=== PATIENT | male | born 1975 | race Caucasian/White ===

== ENCOUNTER 2020-12-13 15:50 | Emergency (ER) | payer OTHER ==
[~2020-12-13] VITALS: Ht 182.9 cm; Wt 91.3 kg
[2020-12-13] MEDS ORDERED: IV NORMAL SALINE 1000ML BAG 1,000 ML IV ONE (16:00)
[2020-12-13 16:15] LABS: BASO # 0.1 x10^3/uL (0.0-0.2); BASO % 1 % (0-3); EOS % 1 % (0-3); HEMATOCRIT 33.7 % (39.0-53.0); HEMOGLOBIN 11.3 g/dL (13.0-17.5); LYMPH # 1.6 x10^3/uL (1.0-4.8); LYMPH % 30 % (24-48); MEAN CORPUSCULAR HEMOGLOBIN 30 pg (25-35); MEAN CORPUSCULAR HGB CONC 34 g/dL (31-37); MEAN CORPUSCULAR VOLUME 89 fL (79-100); MONO # 0.4 x10^3/uL (0.0-1.1); MONO % 7 % (0-9); NEUT # 3.3 x10^3/uL (1.8-7.7); NEUT % 61 % (31-73); PLATELET COUNT 173 x10^3/uL (140-400); RED BLOOD COUNT 3.79 x10^6/uL (4.30-5.70); RED CELL DISTRIBUTION WIDTH 14.5 % (11.5-14.5); WHITE BLOOD COUNT 5.4 x10^3/uL (4.0-11.0)
--- NOTE | 2020-12-13 16:16 | PHYS DOC ---
General Adult EDM: Chief Complaint: CHEST PAIN HPI: HPI: Patient is a 45 year old [f__sex] who presents with [] Review of Systems: Review of Systems: Constitutional: Denies fever or chills Eyes: Denies redness or eye pain HENT: Denies nasal congestion or sore throat Respiratory: Denies cough or shortness of breath Cardiovascular: Denies chest pain or palpitations GI: Denies abdominal pain, nausea, or vomiting : Denies dysuria or hematuria Musculoskeletal: Denies back pain or joint pain Integument: Denies rash or skin lesions Neurologic: Denies headache, focal weakness or sensory changes Complete systems were reviewed and found to be within normal limits, except as documented in this note. Heart Score: C/O Chest Pain: Yes HEART Score for Chest Pain: HEART Score for Chest Pain Response (Comments) Value History Slighlty/Non-Suspicious 0 ECG Normal 0 Age < 45 0 Risk Factors No Risk Factors 0 Troponin < Normal Limit 0 Total 0 Risk Factors: Risk Factors: DM, Current or recent (<one month) smoker, HTN, HLP, family history of CAD, obesity. Risk Scores: Score 0 - 3: 2.5% MACE over next 6 weeks - Discharge Home Score 4 - 6: 20.3% MACE over next 6 weeks - Admit for Clinical Observation Score 7 - 10: 72.7% MACE over next 6 weeks - Early Invasive Strategies Current Medications: Current Medications Medications (Trade) Dose Ordered Sig/Mp Start Time Stop Time Status Last Admin Dose Admin Sodium Chloride 1,000 ml @ 1,000 mls/hr 1X ONCE 12/13/20 16:00 12/13/20 16:59 Allergies: Allergies: Allergies Coded Allergies Type Severity Reaction Last Updated Verified No Known Drug Allergies 12/13/20 No Physical Exam: PE: Constitutional: Well developed, well nourished, no acute distress, non-toxic appearance HENT: Normocephalic, atraumatic Eyes: PERRL, EOMI, conjunctiva normal, no discharge Neck: Normal range of motion, no tenderness, supple Lungs & Thorax: No respiratory distress, equal chest rise and fall Abdomen: Soft, no tenderness Skin: Warm, dry, no erythema, no rash Back: No tenderness, no CVA tenderness Extremities: No tenderness, ROM intact, no edema Neurologic: Alert and oriented X 3, normal motor function, normal sensory function, no focal deficits noted Psychologic: Affect normal, judgment normal EKG: EKG: @1604 NSR at 63bpm, NO ST elevation, QRS 80ms, QT/QTc 426/439ms Radiology/Procedures: Radiology/Procedures: PROCEDURE: CT ANGIO CHEST W ABD PEL W/ CTA CHEST_ABDOMEN_AND PELVIS History: Right chest pain. Right upper quadrant pain. Technique: CT of the chest was performed with intravenous contrast. PE protocol. Maximum intensity projection coronal and sagittal reconstructions were performed. CT abdomen pelvis with contrast. Coronal and sagittal reconstructions were performed. Exposure: One or more of the following individualized dose reduction techniques were utilized for this examination: 1. Automated exposure control 2. Adjustment of the mA and/or kV according to patient size 3. Use of iterative reconstruction technique. Comparison: None Findings: Chest: Linear filling defects within the right lower lobe segmental pulmonary artery. Additional linear filling defects within the right middle and upper lobe segmental pulmonary arteries. Linear filling defects within the left lower lobe, lingula and left upper lobe pulmonary arteries. No definite acute pulmonary embolus. No aortic aneurysm or dissection. No pathologic lymphadenopathy. No consolidation or pleural effusion. No pneumothorax. Mild right upper lobe inferior tree-in-bud nodularity. Mild bronchial wall thickening. Abdomen and pelvis: The liver, spleen, adrenal glands, and pancreas are unremarkable. Contracted gallbladder. No biliary ductal dilatation. Patent portal vein. No hydronephrosis. No renal calculi. Normal appearance of the urinary bladder. Normal appendix. Moderate stool burden throughout the colon. No evidence of bowel obstruction. No pathologic lymphadenopathy. No ascites. Small fat- containing umbilical hernia. Bones: No pathologic osseous lesions. Impression: Chest CT: 1. Sequelae of prior thromboembolic disease. No definite acute pulmonary embolus. 2. Mild tree-in-bud nodularity within the right upper lobe with bronchial wall thickening, may indicate infectious or inflammatory process. Abdomen and pelvis CT: 1. No acute abdominal or pelvic pathology. 2. Contracted gallbladder. 3. Moderate colonic stool burden. Electronically signed by: Axel Gonazles DO (12/13/2020 5:21 PM) [facility] Course & Med Decision Making: Course & Med Decision Making Pertinent Labs and Imaging studies reviewed. (See chart for details) Patient stable for discharge with outpatient follow-up with PCP. Discussed findings and plan with patient, who acknowledges understanding and agreement. Anna Disclaimer: Anna Disclaimer: This electronic medical record was generated, in whole or in part, using a voice recognition dictation system. Departure Departure Impression: Primary Impression: Atypical chest pain Additional Impressions: History of pulmonary embolism Constipation Qualified Codes: K59.00 - Constipation, unspecified History of hypotension Disposition: HOME / SELF CARE / HOMELESS Condition: STABLE Patient Instructions: Chest Pain (Nonspecific), [id number], Constipation, Adult, [id number], Hypotension, [id number], Pulmonary Embolus Additional Instructions: Your chest pain is likely secondary to known PE. Continue previously prescribed Eliquis. Hypotension was not reproduced upon your arrival to the emergency department. IV fluid hydration given. Blood pressure has remained stable throughout. Take [id number] Tylenol for pain or discomfort. Scripts Sennosides/Docusate Sodium (Colace 2-in-1 Tablet) 1 Each Tablet 1 TAB PO QHS PRN for CONSTIPATION for 30 Days, #30 TAB 0 Refills Prov: SALENA BROWN DO 12/13/20 SALENA BROWN DO Dec 13, 2020 16:15
[2020-12-13 16:25] LABS: CALCIUM 8.1 mg/dL (8.5-10.1); GFR 81.6
[2020-12-13 16:30] LABS: ALBUMIN 3.1 g/dL (3.4-5.0); ALBUMIN/GLOBULIN RATIO 1.2 (1.0-1.7); MAGNESIUM 1.9 mg/dL (1.8-2.4); TOTAL BILIRUBIN 0.3 mg/dL (0.2-1.0); TOTAL PROTEIN 5.6 g/dL (6.4-8.2)
[2020-12-13] MEDS ORDERED: IOHEXOL 350 MG/ML 100 ML VIAL. IV ONE (16:30)
[2020-12-13] MEDS ORDERED: CONTRAST GIVEN. MC PRN (16:45)
[2020-12-13 16:46] LABS: BILIRUBIN,URINE NEGATIVE (NEG); CLARITY,URINE CLEAR; COLOR,URINE YELLOW; NITRITE,URINE NEGATIVE (NEG); PROTEIN,URINE NEGATIVE (NEG-TRACE); UROBILINOGEN,URINE 0.2 mg/dL (0.2 mg/dL)
[2020-12-13 16:52] LABS: BARBITURATES NEG (NEG); BENZODIAZEPINES NEG (NEG); CANNABINOIDS NEG (NEG); COCAINE NEG (NEG); METHADONE NEG (NEG); OPIATES NEG (NEG); PHENCYCLIDINE NEG (NEG)
[2020-12-13 17:00] LABS: AMPHETAMINE/METHAMPHETAMINE NEG (NEG)
[2020-12-13 17:01] VITALS: BP 120/73
[2020-12-13 17:01] LABS: BACTERIA,URINE 0 /HPF (0-FEW); HYALINE CASTS, URINE FEW /HPF; RBC,URINE 0 /HPF (0-2); WBC,URINE 0 /HPF (0-4)
[2020-12-13 17:05] LABS: PROTHROMBIN TIME PATIENT 15.9 SEC (11.7-14.0)
--- NOTE | 2020-12-13 17:23 | RAD ---
CTA CHEST_ABDOMEN_AND PELVIS History: Right chest pain. Right upper quadrant pain. Technique: CT of the chest was performed with intravenous contrast. PE protocol. Maximum intensity pr ojection coronal and sagittal reconstructions were performed. CT abdomen pelvis with contrast. Givens l and sagittal reconstructions were performed. Exposure: One or more of the following individualized dose reduction techniques were utilized for thi s examination: 1. Automated exposure control 2. Adjustment of the mA and/or kV according to patient size 3. Use of iterative reconstruction technique. Comparison: None Findings: Chest: Linear filling defects within the right lower lobe segmental pulmonary artery. Additional line ar filling defects within the right middle and upper lobe segmental pulmonary arteries. Linear fillin g defects within the left lower lobe, lingula and left upper lobe pulmonary arteries. No definite acu te pulmonary embolus. No aortic aneurysm or dissection. No pathologic lymphadenopathy. No consolidation or pleural effusion. No pneumothorax. Mild right upper lobe inferior tree-in-bud nod ularity. Mild bronchial wall thickening. Abdomen and pelvis: The liver, spleen, adrenal glands, and pancreas are unremarkable. Contracted gall bladder. No biliary ductal dilatation. Patent portal vein. No hydronephrosis. No renal calculi. Amy l appearance of the urinary bladder. Normal appendix. Moderate stool burden throughout the colon. No evidence of bowel obstruction. No pat hologic lymphadenopathy. No ascites. Small fat-containing umbilical hernia. Bones: No pathologic osseous lesions. Impression: Chest CT: 1. Sequelae of prior thromboembolic disease. No definite acute pulmonary embolus. 2. Mild tree-in-bud nodularity within the right upper lobe with bronchial wall thickening, may indic ate infectious or inflammatory process. Abdomen and pelvis CT: 1. No acute abdominal or pelvic pathology. 2. Contracted gallbladder. 3. Moderate colonic stool burden. Electronically signed by: Axel Gonzales DO (12/13/2020 5:21 PM) [facility]
[2020-12-13] MEDS ORDERED: DEXAMETHASONE SOD PHOS 4 MG/ML VIAL IVP ONE (18:00)
[2020-12-13] MEDS ORDERED: SENN-121 PO (18:38)
== END 2020-12-13 19:16 | disposition home or self-care (01) ==
LOC: EEVIPCON 15:50 → ER 15:50
DX: R07.89 Other chest pain (principal); K59.00 Constipation, unspecified; Z86.711 Personal history of pulmonary embolism
CPT/HCPCS: 36415; 71275; 74177; 80053; 80307; 81001; 83690; 83735; 83880; 84484; 85025; 85610; 85730; 93005; 96361; 96374; 99285; J1100; J7030; Q9967